=== PATIENT | male | born 2000 | race American Indian/Alaskan Native ===

== ENCOUNTER 2025-04-06 10:55 | Emergency (ER) | payer SELFPAY ==
[2025-04-06] VITALS (14 sets, daily range): BP systolic 111–142; BP diastolic 69–100; PULSE 65–94; RESP 14–20; O2SAT 95–100
--- NOTE | ~2025-04-06 | CT_ITS ---
EXAMINATION: CT abdomen pelvis w con DATE: 04/06/2025 14:30 INDICATION: Left upper quadrant and left lower quadrant abdominal pain TECHNIQUE: Computed tomography (CT) of the abdomen and pelvis was performed with 100 mL Omnipaque-350 intravenous contrast. Automated exposure control and iterative reconstruction technique were employe d. The dose-length product was 207.46 mGy-cm. COMPARISON: None FINDINGS: Lung bases are clear. Heart size is normal. No pericardial or pleural effusion. Focal hepatic steatos is along the ligamentum teres. Gallbladder, spleen, pancreas, bilateral adrenal glands and left kidne y are normal. 8 mm cyst in the mid right kidney. Bladder is normal. Bowels including the appendix are normal. No free intraperitoneal gas or fluid. No pathologically enlarged abdominal or pelvic lymphad enopathy. Transitional S1 segment which is lumbarized on the right with 5 more cephalad nonrib-bearin g lumbar segments. IMPRESSION: 1. No acute intra-abdominal/pelvic process. Reviewed, dictated and finalized at location A.
--- NOTE | 2025-04-06 11:51 | ED_ITS ---
HPI - Abdominal Pain General Chief Complaint: GI Bleed Stated Complaint: blood in stool, recent stomach ulcer? Time Seen by Provider: 04/06/25 11:26 History of Present Illness HPI narrative: Patient is a 25-year-old [place] male who presents to the ER with complaints of rectal bleeding and left lower quadrant abdominal pain. He reports he has had digestive problems this started 1 month ago. His symptoms include burning in his esophagus after he eats. Patient reports he has blood in stool that he 1st noticed a couple of days ago. He describes his stools as hard and the blood as bright red and a small amount. Patient reports he went to urgent care approximately 1 week ago and they put him on Prilosec. He reports these symptoms have not improved. Patient endorses significant left lower quadrant pain at the time of examination. He denies any urinary symptoms, recent fevers, or diarrhea. Patient denies any medical history relevant to this ER visit. Related Data Allergies Allergy/AdvReac Type Severity Reaction Status Date / Time No Known Allergies Allergy Verified 04/06/25 12:15 Review of Systems 2 Review of Systems: All systems reviewed & are unremarkable except as noted in HPI and below Exam 2 Narrative: GENERAL: Well appearing, well-nourished, non-toxic, in no acute distress. HEAD: Normocephalic, atraumatic. NECK: Supple. No adenopathy, no masses. RESPIRATORY: Airway patent, respirations nonlabored. Clear to auscultation bilaterally, no rales, rhonchi, wheezing. CARDIOVASCULAR: Regular rate and rhythm without murmurs, rubs, or gallops. Peripheral pulses 2+ and equal bilaterally. ABDOMINAL: Soft, tender LUQ and LLQ, nondistended, no hepatosplenomegaly. Normoactive BS. Negative Villa's sign MUSCULOSKELETAL: Moves all extremities. Strength/ROM intact without gross deformities. SKIN: Warm, dry, normal color. No rashes. NEURO: A&O X3. Speech clear. Cranial nerves II-XII intact. No ataxic movements. PSYCHIATRIC: Appropriate mood and affect. Normal interaction. : Rectal exam was performed and there were palpable hemorrhoids. His hemoccult test was negative. Course Vital Signs Vital signs: Vital Signs Blood Pressure 124/100 H 04/06/25 11:02 Pulse Oximetry 100 04/06/25 11:02 Pulse Rate 94 04/06/25 14:30 Respiratory Rate 20 04/06/25 14:30 Blood Pressure 123/88 04/06/25 14:30 Pulse Oximetry 95 04/06/25 14:30 Oxygen Delivery Room Air 04/06/25 12:00 MDM - Abdominal Pain MDM Narrative Medical decision making narrative: Patient is a 25-year-old [place] male who presents to the ER with complaints of rectal bleeding and left lower quadrant abdominal pain. He reports he has had digestive problems this started 1 month ago. His symptoms include burning in his esophagus after he eats. Patient reports he has blood in stool that he 1st noticed a couple of days ago. He describes his stools as hard and the blood as bright red and a small amount. Patient reports he went to urgent care approximately 1 week ago and they put him on Prilosec. He reports these symptoms have not improved. Patient endorses significant left lower quadrant pain at the time of examination. He denies any urinary symptoms, recent fevers, or diarrhea. Patient denies any medical history relevant to this ER visit. Labs Ordered: CBC, CMP, lipase, PTT, INR Imaging Ordered: CT abdomen pelvis Medications Ordered: 1 L normal saline IV bolus, Toradol 30 mg IV, Pepcid 20 mg IV, Protonix 40 mg IV, GI cocktail Results: Pt's CT scan indicates Lung bases are clear. Heart size is normal. No pericardial or pleural effusion. Focal hepatic steatosis along the ligamentum teres. Gallbladder, spleen, pancreas, bilateral adrenal glands and left kidney are normal. 8 mm cyst in the mid right kidney. Bladder is normal. Bowels including the appendix are normal. No free intraperitoneal gas or fluid. No pathologically enlarged abdominal or pelvic lymphadenopathy. Transitional S1 segment which is lumbarized on the right with 5 more cephalad nonrib-bearing lumbar segments. Diagnosis: GERD, constipation, hemorrhoids Patient Education/Shared MDM: Results of lab work and imaging shared with patient. He endorses improvement of symptoms following the GI cocktail administration. Rectal exam was performed and there were palpable hemorrhoids. His hemoccult test was negative. Patient strongly advised to maintain hydration status upon discharge and follow-up with his PCP as soon as possible. He will be discharged home with a prescription for Miralax, Pepcid, and Colace. Strict return precautions provided. Patient verbalized understanding and is in agreement with plan. Vital signs stable at time of discharge. All questions answered. Differential Diagnosis Differential diagnosis: Likely abdominal pain, constipation, diverticulitis, gastroenteritis, small bowel obstruction and other (Hemorrhoids, GERD) Lab Data Attestation: I reviewed the patient's lab results. 04/06/25 12:17 04/06/25 12:17 Labs: Lab Results 04/06/25 04/06/25 Range/Units 12:17 13:51 WBC 6.6 (4.5-10.0) K/mm3 RBC 5.55 (4.6-6.20) M/mm3 Hgb 15.9 (14.0-18.0) g/dL Hct 45.6 (42.0-52.0) % MCV 82.2 (80-100) fl MCH 28.6 (26-34) pg MCHC 34.9 (32-36) g/dl RDW 12.6 (11.5-14.5) % Plt Count 259 (150-375) k/mm3 MPV 10.4 (7.4-10.4) fl Immature Gran % (Auto) 0.2 (0-0.5) % Neut % (Auto) 49.4 (45.5-73.1) % Lymph % (Auto) 38.8 (18.3-44.2) % [place] % (Auto) 7.9 (2.6-8.5) % Eos % (Auto) 3.2 (0-4.4) % Baso % (Auto) 0.5 (0.2-1.2) % Lymph # (Auto) 2.54 (0.9-3.2) K/mm3 [place] # (Auto) 0.5 (0.1-0.6) K/mm3 Eos # (Auto) 0.2 (0-0.3) K/mm3 Baso # (Auto) 0.0 (0.0-0.1) K/mm3 Abs Immat Gran (auto) 0.01 (0.00-0.031) K/mm3 Absolute Neuts (auto) 3.2 (1.3-6.7) K/mm3 Absolute Nucleated RBC 0.000 (0.0-0.012) K/mm3 Nucleated RBC % 0.0 (0.0-0.2) % PT 14.7 (11.1-14.7) Seconds INR 1.1 APTT 27.7 (22.3-36.8) Seconds Sodium 139 (137-145) mmol/L Potassium 3.9 (3.4-5.0) mmol/L Chloride 104 (98-107) mmol/L Carbon Dioxide 23 (22-30) mmol/L Anion Gap 12 (4-12) mmol/L BUN 10 (9-20) mg/dL Creatinine 0.79 (0.7-1.3) mg/dL Estim Creat Clear Calc 99 ml/min Estimated GFR > 60 (59 - ) Glucose 90 (65-110) mg/dL Calcium 9.7 (8.4-10.2) mg/dL Total Bilirubin 1.0 (0.2-1.3) mg/dL AST 28 (17-59) U/L ALT 15 (6-50) U/L Alkaline Phosphatase 74 (38-126) U/L Total Protein 8.3 H (6.3-8.2) g/dL Albumin 4.8 (3.5-5.1) g/dL Lipase 92 (23-300) U/L Urine Color Yellow (Yellow) Urine Appearance Clear (Clear) Urine pH 7.5 (5.0-9.0) Ur Specific [place] 1.020 (1.001-1.035) Urine Protein Negative (Negative) mg/dL Urine Glucose (UA) Negative (Negative) mg/dL Urine Ketones 4+ H (Negative) mg/dL Ur Blood (Man) Trace-intact H (Negative) Urine Nitrate Negative (Negative) Urine Bilirubin Negative (Negative) Urine Urobilinogen 0.2 (<2.0) mg/dL Leukocyte Esterase Rfl Negative (Negative) YOJANA/UL Imaging Data Attestation: I personally reviewed and interpreted this imaging study as follows: Radiologist's impression: ITS Impressions Abdomen/Pelvis CT 04/06/25 14:33 IMPRESSION: 1. No acute intra-abdominal/pelvic process. Discharge Plan Discharge Clinical Impression: Hemorrhoids, Gastric reflux, Abdominal pain Patient Disposition: Home Condition: Stable Instructions: Antibiotic Form, Constipation (ED), Diet for Stomach Ulcers and Gastritis (ED), GERD (Gastroesophageal Reflux Disease) (ED) Additional Instructions: Please return to the ER with any worsening symptoms. Follow-up with primary care provider as soon as possible. Take all medications as prescribed. Please remember to drink lots of water. Patient Language: Wolof Prescriptions: New polyethylene glycol 3350 [Miralax] 17 gram/dose powder 17 g PO BID Qty: 238 0RF famotidine [Acid Controller] 20 mg tablet 20 mg PO BID Qty: 30 0RF docusate sodium [Colace] 100 mg capsule 100 mg PO BID Qty: 60 0RF Follow-up/Referrals: PHYSICIAN,QUALITY ASSURANCE TESTER [Primary Care Provider] - Mikael Loja MD [Physician] - (primary care) Time of Disposition: 15:52
[2025-04-06] MEDS: Please add drug allergy info to patient profile. 1 EACH XX (12:17)
[2025-04-06] MEDS: SODIUM CHLORIDE 0.9% IV 1,000 ML 999 ML IV CONT (12:17)
[2025-04-06] MEDS: KETOROLAC 30 MG/ML VIAL (*BKC) IV PUSH (12:17)
[2025-04-06] MEDS: FAMOTIDINE 20 MG/2 ML VIAL IV PUSH (12:19)
[2025-04-06] MEDS: PANTOPRAZOLE SODIUM IV 40 MG VIAL IV PUSH (12:22)
[2025-04-06 12:30] LABS: Basophils Percent Auto 0.5 % (0.2-1.2); Eosinophils Absolute Auto 0.2 K/mm3 (0-0.3); Eosinophils Percent Auto 3.2 % (0-4.4); Hematocrit 45.6 % (42.0-52.0); Hemoglobin 15.9 g/dL (14.0-18.0); Immature Granulocyte Absolute 0.01 K/mm3 (0.00-0.031); Immature Granulocyte Percent A 0.2 % (0-0.5); Lymphocytes Absolute Auto 2.54 K/mm3 (0.9-3.2); Lymphocytes Percent Auto 38.8 % (18.3-44.2); Mean Corpuscular HGB Conc 34.9 g/dl (32-36); Mean Corpuscular Hemoglobin 28.6 pg (26-34); Mean Corpuscular Volume 82.2 fl (80-100); Mean Platelet Volume 10.4 fl (7.4-10.4); Monocytes Absolute Auto 0.5 K/mm3 (0.1-0.6); Monocytes Percent Auto 7.9 % (2.6-8.5); Neutrophils Absolute Auto 3.2 K/mm3 (1.3-6.7); Neutrophils Percent Auto 49.4 % (45.5-73.1); Platelet Count Result 259 k/mm3 (150-375); Red Blood Count 5.55 M/mm3 (4.6-6.20); Red Cell Distribution Width 12.6 % (11.5-14.5); White Blood Count 6.6 K/mm3 (4.5-10.0)
[2025-04-06 12:46] LABS: INR 1.1; Prothrombin Time 14.7 Seconds (11.1-14.7)
[2025-04-06 12:47] LABS: Partial Thromboplastin Time 27.7 Seconds (22.3-36.8)
[2025-04-06 14:00] LABS: Alanine Aminotransferase 15 U/L (6-50); Albumin Level 4.8 g/dL (3.5-5.1); Alkaline Phosphatase 74 U/L (38-126); Anion Gap 12 mmol/L (4-12); Aspartate Amino Transferase 28 U/L (17-59); Blood Urea Nitrogen 10 mg/dL (9-20); Calcium 9.7 mg/dL (8.4-10.2); Carbon Dioxide 23 mmol/L (22-30); Chloride 104 mmol/L (98-107); Estimated CRCL calculation 99 ml/min; Estimated Glomerular Filt Rate > 60; Glucose 90 mg/dL (65-110); Lipase 92 U/L (23-300); Potassium 3.9 mmol/L (3.4-5.0); Sodium 139 mmol/L (137-145); Total Protein 8.3 g/dL (6.3-8.2)
[2025-04-06 14:20] LABS: Appearance Urine Clear (Clear); Color Urine Yellow (Yellow); pH Urine 7.5 (5.0-9.0)
[2025-04-06 14:21] LABS: Bilirubin Urine Negative (Negative); Blood Urine Trace-intact (Negative); Glucose Urine UA Negative (Negative); Ketones Urine 4+ mg/dL (Negative); Nitrate Urine Negative (Negative); Protein Urine Negative (Negative)
[2025-04-06 14:22] LABS: Add Urine Microscopic? NO; Leukocyte Esterase Ur Negative LEU/UL (Negative); Urobilinogen Urine 0.2 mg/dL (<2.0)
[2025-04-06] MEDS: BELLADONNA ALK/PHENOB ELIX 10 ML, MAG HYDROX/ALUMINUM HYD/SIMETH 30 ML, LIDOCAINE 2% VI... PO (15:26)
== END 2025-04-06 16:26 | disposition home or self-care (01) ==
PROVIDERS: Emergency Provider Registered Nurse
DX: K64.9 Unspecified hemorrhoids (principal); K21.9 Gastro-esophageal reflux disease without esophagitis; R10.32 Left lower quadrant pain
CPT/HCPCS: 36415; 74177; 80053; 81003; 83690; 85025; 85610; 85730; 96361; 96374; 96375; 99284; A9270; J1885; J2470; J7030; Q9967